=== PATIENT | male | born 1950 | race Caucasian/White ===

== ENCOUNTER → 2020-11-12 | Outpatient (CLI) | payer MEDICARE, OTHER ==
[~2020-11-12] MED LIST: RT-ALBUTEROL SULF 2.5 MG/3 ML PRE-MIX VIAL INH ONE
--- NOTE | 2020-11-12 10:31 | Diagnostic Imaging Report ---
INDICATION: Difficulty breathing. TIME OF EXAM: 10:19 AM. COMPARISON: No prior studies are available for comparison. FINDINGS: There is elevation of the left hemidiaphragm with subsegmental atelectasis in the left base. Otherwise, the lungs are clear. No effusions are seen. There is no pneumothorax. The heart size is normal. IMPRESSION: Elevated left hemidiaphragm with left basilar subsegmental atelectasis. Dictated by: Dictated on workstation # [id number]
== END ==
LOC: RT 09:30
PROVIDERS: ATTEND Nurse Practitioner Family
DX: R06.00 Dyspnea, unspecified (principal)
CPT/HCPCS: 71046; 94060; 94726; 94729

== ENCOUNTER → 2020-12-22 | Outpatient (CLI) | payer MEDICARE ==
[~2020-12-22] MED LIST changes: +CATHETER FLUSH 10 ML SYR IV PRN; +HOLD METFORMIN - RECEIVED CONTRAST 20 ML VIAL IV SCH; +IOHEXOL 350 MG/ML 100 ML (OMNIPAQUE 350) VIAL IV ONE; +NS 100 ML (IVPB) BAG IV ONE; -RT-ALBUTEROL SULF 2.5 MG/3 ML PRE-MIX VIAL INH ONE
[2020-12-22 09:49] LABS: CREATININE SERUM 0.91 MG/DL (0.60-1.30)
--- NOTE | 2020-12-22 10:51 | Diagnostic Imaging Report ---
PROCEDURE: CT chest with contrast only. TECHNIQUE: Multiple contiguous axial images were obtained through the chest after administration of intravenous contrast. Auto Exposure Controls were utilized during the CT exam to meet ALARA standards for radiation dose reduction. INDICATION: Shortness of breath, abnormal chest x-ray. COMPARISON: The exam is correlated with a radiograph from 11/12/2020. FINDINGS: Elevation of the left hemidiaphragm is unchanged when the differing modality is taken into account. There is some subjacent left basilar partial atelectasis, also showing no appreciable change from the prior. No lung mass. No findings suggestive of pneumonia. The thoracic aorta is patent and nonaneurysmal. Three are coronary artery atherosclerotic vascular calcifications. While there is no herniation of the stomach, there is fatty herniation paraesophageal extending into the lower chest. No mediastinal or hilar lymphadenopathy. No evidence for PE. No acute or suspect chest wall lesion. The visualized upper abdomen shows a mild fatty liver with punctate nonobstructing left lower pole renal calculi. IMPRESSION: Stable elevation of the left diaphragm with subjacent basilar atelectasis, believed chronic. No suspicious mass or adenopathy. No acute pleural or chest wall pathology. Paraesophageal fatty hernia, noninflamed. Mild hepatic steatosis and nonobstructing left-sided nephrolithiasis. Dictated by: Dictated on workstation # [id number]
== END ==
LOC: RAD 09:08
PROVIDERS: ATTEND Nurse Practitioner Family
DX: J98.11 Atelectasis (principal); K76.0 Fatty (change of) liver, not elsewhere classified; N20.0 Calculus of kidney; K46.9 Unspecified abdominal hernia without obstruction or gangrene
CPT/HCPCS: 36415; 71260; 82565; 84520

== ENCOUNTER 2021-02-06 09:02 | Outpatient (RCR) | payer MEDICARE | END 2021-02-25 15:50 | disposition home or self-care (01) | PROVIDERS: ATTEND Nurse Practitioner Family | DX: J44.9 Chronic obstructive pulmonary disease, unspecified (principal); I10 Essential (primary) hypertension ==